=== PATIENT | male | born 1985 | race Caucasian/White ===

== ENCOUNTER 2017-10-13 14:47 | Emergency (ER) | payer MEDICAID ==
[2017-10-13 14:53] VITALS: RESP 18; TEMP 98.4
--- NOTE | 2017-10-13 15:27 | EDPHY ---
H & P Stated Complaint: sinus congestion/cough Time Seen by Provider: 10/13/17 15:05 HPI/ROS: CHIEF COMPLAINT: Sinus congestion HISTORY OF PRESENT ILLNESS: 31-year-old immunocompetent male complaining of 3 days of sinus congestion. No fever no chills. No nuchal rigidity. No cough. No nausea or vomiting. No flu-like symptoms. No influenza vaccination. REVIEW OF SYSTEMS: A ten point review of systems was performed and is negative with the exception of the items mentioned in the HPI PAST MEDICAL & SURGICAL HISTORY: No pertinent medical or surgical history SOCIAL HISTORY: Positive for marijuana smoking PHYSICAL EXAM (Prior to examination, patient consented to physical exam, hands were washed and my usual and customary physical exam procedures followed) 1) GENERAL: Well-developed, well-nourished, alert and oriented. Appears to be in no acute distress. 2) HEAD: Normocephalic, atraumatic 3) HEENT: Pupils equal, round, reactive to light bilaterally. Sclera anicteric. Nasopharynx, oropharynx, clear, no lesions. No tonsillar enlargement or exudate. Ears bilaterally with normal tympanic membranes. 4) NECK: Full range of motion, no meningeal signs. 5) LUNGS: Clear auscultation bilaterally, no wheezes, no rhonchi, no retractions. 6) HEART: Regular rate and rhythm, no murmur, no heave, no gallop. 7) ABDOMEN: No guarding, no rebound, no focal tenderness, negative McBurney's, negative Brennan's, negative Rovsing's, negative peritoneal sign, 8) MUSCULOSKELETAL: Moving all extremities, no focal areas of tenderness, no obvious trauma. No peripheral edema or discoloration. 9) BACK: No CVA tenderness, no midline vertebral tenderness, no fluctuance, no step-off, no obvious trauma, no visual or palpable abnormality. 10) SKIN: No rash, no petechiae. 11) Psychiatric: Patient is oriented X 3, there is no agitation. DIFFERENTIAL DIAGNOSIS: In no particular order including but not limited to acute sinusitis, acute pharyngitis, strep pharyngitis, influenza, pneumonia - Personal History Current Tetanus/Diphtheria Vaccine: Unsure Tetanus Vaccine Date: 2005 - Medical/Surgical History Hx Asthma: No Hx Chronic Respiratory Disease: No Hx Diabetes: No Hx Cardiac Disease: No Hx Renal Disease: No Hx Cirrhosis: No Hx Alcoholism: No Hx HIV/AIDS: No Hx Splenectomy or Spleen Trauma: No Other PMH: cellulitis, ear tubes - Social History Smoking Status: Never smoked Constitutional: Initial Vital Signs Temperature (C) 36.9 C 10/13/17 14:50 Heart Rate 69 10/13/17 14:50 Respiratory Rate 18 10/13/17 14:50 Blood Pressure 141/108 H 10/13/17 14:50 O2 Sat (%) 96 10/13/17 14:50 O2 Delivery Mode Room Air Allergies/Adverse Reactions: No Known Allergies Allergy (Verified 10/13/17 14:50) Home Medications: Medication Instructions Recorded Afrin Nasal [place] 10/13/17 Claritin 10/13/17 Ipratropium 0.06% Nasal [Atrovent 2 sprays EACHNARE QID #1 mdi 10/13/17 0.06% Nasal (RX)] Medical Decision Making ED Course/Re-evaluation: Patient's symptoms are more than likely secondary to viral etiology. For these reasons, I do not feel antibiotics are currently indicated. In addition, I do not identify indication for chest x-ray as the patient's lungs are clear bilaterally, has a normal pulse ox, speaking full sentences, no signs of respiratory distress. The patient understands that this diagnosis is provisional and can never be 100% accurate. Usual and customary warnings were given concerning the clinical impression and all the patient's questions were answered. The patient was instructed to return to the emergency department should her symptoms worsen or return, or develop any new symptoms, otherwise to followup as directed in discharge instructions. Care of patient under supervision of secondary supervising physician Dr Rebolledo. Departure - Departure Disposition: Home, Routine, Self-Care Clinical Impression: Sinusitis, acute Qualifiers: Sinusitis location: maxillary Recurrence: non-recurrent Qualified Code(s): J01.00 - Acute maxillary sinusitis, unspecified Condition: Good Instructions: Sinusitis (ED), Rhinosinusitis (ED) Additional Instructions: Return to the emergency department immediately for change in breathing habits, change in voice, change in swallowing habits, change in mental status, or any other symptoms that concern you. Referrals: [facility],. [Clinic] - 1-2 days without fail Prescriptions: Ipratropium 0.06% Nasal [Atrovent 0.06% Nasal (RX)] 2 sprays EACHNARE QID #1 mdi
[2017-10-13 15:33] VITALS: BP 155/100; PULSE 74; O2SAT 95
== END 2017-10-13 15:33 | disposition home or self-care (01) ==
DX: J01.00 Acute maxillary sinusitis, unspecified (principal)

== ENCOUNTER 2018-01-10 15:40 | Emergency (ER) | payer MEDICAID ==
[2018-01-10] MEDS ORDERED: NS 1,000 ML IV ONE (16:36)
[2018-01-10] MEDS ORDERED: DEXAMETHASONE 10 MG/ML VIAL IVP ONE (16:36)
--- NOTE | 2018-01-10 16:40 | EDPHY ---
H & P Smoking Status: Never smoked Time Seen by Provider: 01/10/18 16:20 HPI/ROS: CHIEF COMPLAINT: Sore throat, fatigue HISTORY OF PRESENT ILLNESS: 32-year-old male presents to the emergency department by private vehicle complaining of sore throat and fatigue over last 3 days. The patient states that he has eaten and drank very little over last 2- 3 days because of the pain in his throat. No fevers or chills. He feels like he has swollen glands. He feels extreme fatigue. No known ill contacts. He does have roommates however that are not ill. He denies pain in his chest or difficulty breathing. Denies abdominal pain or vomiting. Patient denies dysphagia or trismus. REVIEW OF SYSTEMS: Constitutional: No fever, no chills. Eyes: No double or blurry vision. ENT: sore throat. Respiratory: No cough, no shortness of breath. Cardiac: No chest pain. Gastrointestinal: Nausea. No abdominal pain, vomiting or diarrhea. Genitourinary: No dysuria. Musculoskeletal: No neck or back pain. Skin: No rashes. Neurological: No headache. (Blanca Duke) Past Medical/Surgical History: Cellulitis, ear tubes (Blanca Duke) Social History: Single, works in a restaurant (Blanca Duke) Physical Exam: General Appearance: Alert, no distress. Temperature 37.4 degrees. Eyes: Pupils equal and round. Extraocular motions are all intact. ENT: Mouth: Mucous membranes moist. Large 2+ tonsils with exudate noted. No muffled voice or trismus. Respiratory: No wheezing, rhonchi, or rales, lungs are clear to auscultation. Cardiovascular: Regular rate and rhythm. Gastrointestinal: Abdomen is soft and nontender, no masses, no rebound or guarding, bowel sounds normal. Neurological: Alert and oriented x 3, cranial nerves II through XII grossly intact Skin: Warm and dry, no rashes. Musculoskeletal: Nontender to palpate along the cervical, thoracic or lumbar spine. Neck is supple. Anterior cervical lymphadenopathy palpated. Extremities: Full range of motion and no peripheral edema. Psychiatric: Patient is oriented X 3, there is no agitation. (Blanca Duke) Constitutional: Initial Vital Signs Temperature (C) 37.4 C 01/10/18 15:56 Heart Rate 78 01/10/18 15:56 Respiratory Rate 18 01/10/18 15:56 Blood Pressure 141/81 H 01/10/18 15:56 O2 Sat (%) 96 01/10/18 15:56 O2 Delivery Mode Room Air Allergies/Adverse Reactions: No Known Allergies Allergy (Verified 01/10/18 16:00) Home Medications: Medication Instructions Recorded Afrin Nasal [place] 10/13/17 Claritin 10/13/17 Ipratropium 0.06% Nasal [Atrovent 2 sprays EACHNARE QID #1 mdi 10/13/17 0.06% Nasal (RX)] Medical Decision Making ED Course/Re-evaluation: 32-year-old male presents emergency department with fatigue and sore throat. He is concerned about possible mononucleosis. He has also not been able to eat or drink much because of the pain. IV was established and laboratory studies were drawn. Patient was given IV normal saline as well as IV Decadron. (Blanca Duke) I took over care of this patient at 5:15 p.m.. We were waiting testing for mononucleosis and streptococcal pharyngitis. Patient has been given IV fluids, IV Decadron and IV Toradol. 5:35 p.m., patient re-evaluated. Resting comfortably at this time. Rapid strep positive. Mononucleosis negative. Medication allergies reviewed. He is feeling much better at this time. No voice changes. No stridor. He will be given 1.2 million units of intramuscular penicillin G long-acting. He feels comfortable going home at this time and I feel he is safe for discharge. Follow -up and return to emergency department precautions reviewed with him. All of his questions were answered. He was discharged from the emergency department in good condition. (Pastora Persaud) Differential Diagnosis: Including but not limited to strep pharyngitis, mononucleosis, peritonsillar abscess, retropharyngeal abscess, sepsis (Blanca Duke) - Data Points Laboratory Results: Laboratory Results 01/10/18 16:32 01/10/18 16:45 01/10/18 01/10/18 01/10/18 16:45 16:32 16:32 WBC RBC Hgb Hct MCV MCH MCHC RDW Plt Count MPV Neut % (Auto) Lymph % (Auto) [place] % (Auto) Eos % (Auto) Baso % (Auto) Nucleat RBC Rel Count Absolute Neuts (auto) Absolute Lymphs (auto) Absolute Monos (auto) Absolute Eos (auto) Absolute Basos (auto) Absolute Nucleated RBC Immature Gran % Immature Gran # Sodium 138 mEq/L mEq/L (135-145) Potassium 3.9 mEq/L mEq/L (3.3-5.0) Chloride 106 mEq/L mEq/L (97-110) Carbon Dioxide 16 mEq/l L mEq/l (22-31) Anion Gap 16 mEq/L mEq/L (8-16) BUN 9 mg/dL mg/dL (7-23) Creatinine 1.0 mg/dL mg/dL (0.7-1.3) Estimated GFR > 60 Glucose 100 mg/dL mg/dL (70-100) Calcium 9.4 mg/dL mg/dL (8.5-10.4) Monoscreen NEGATIVE (NEGATIVE) Group A Strep Screen POSITIVE H (NEGATIVE) 01/10/18 16:32 WBC 17.48 10^3/uL H 10^3/uL (3.80-9.50) RBC 5.25 10^6/uL 10^6/uL (4.40-6.38) Hgb 15.3 g/dL g/dL (13.7-17.5) Hct 43.5 % % (40.0-51.0) MCV 82.9 fL fL (81.5-99.8) MCH 29.1 pg pg (27.9-34.1) MCHC 35.2 g/dL g/dL (32.4-36.7) RDW 13.2 % % (11.5-15.2) Plt Count 249 10^3/uL 10^3/uL (150-400) MPV 9.8 fL fL (8.7-11.7) Neut % (Auto) 82.5 % H % (39.3-74.2) Lymph % (Auto) 9.6 % L % (15.0-45.0) [place] % (Auto) 6.9 % % (4.5-13.0) Eos % (Auto) 0.1 % L % (0.6-7.6) Baso % (Auto) 0.3 % % (0.3-1.7) Nucleat RBC Rel Count 0.0 % % (0.0-0.2) Absolute Neuts (auto) 14.44 10^3/uL H 10^3/uL (1.70-6.50) Absolute Lymphs (auto) 1.67 10^3/uL 10^3/uL (1.00-3.00) Absolute Monos (auto) 1.21 10^3/uL H 10^3/uL (0.30-0.80) Absolute Eos (auto) 0.01 10^3/uL L 10^3/uL (0.03-0.40) Absolute Basos (auto) 0.05 10^3/uL 10^3/uL (0.02-0.10) Absolute Nucleated RBC 0.00 10^3/uL 10^3/uL (0-0.01) Immature Gran % 0.6 % % (0.0-1.1) Immature Gran # 0.10 10^3/uL 10^3/uL (0.00-0.10) Sodium Potassium Chloride Carbon Dioxide Anion Gap BUN Creatinine Estimated GFR Glucose Calcium Monoscreen Group A Strep Screen Medications Given: Discontinued Medications Dexamethasone (Decadron Injection) 10 mg IVP EDNOW ONE Stop: 01/10/18 16:37 Last Admin: 01/10/18 16:53 Dose: 10 mg Sodium Chloride (Ns) 1,000 mls @ 0 mls/hr IV ONCE ONE PRN Reason: Wide Open Stop: 01/10/18 16:37 Last Admin: 01/10/18 16:53 Dose: 1,000 mls Ketorolac Tromethamine (Toradol) 30 mg IVP EDNOW ONE Stop: 01/10/18 17:16 Last Admin: 01/10/18 17:24 Dose: 30 mg Departure - Departure Disposition: Home, Routine, Self-Care Clinical Impression: Sore throat, Streptococcal pharyngitis Fatigue Qualifiers: Fatigue type: unspecified Qualified Code(s): R53.83 - Other fatigue Condition: Good Instructions: Fatigue (ED), Strep Throat (ED) Additional Instructions: Adult Pain & Fever Control: We recommend Acetaminophen (Tylenol) and Ibuprofen (Motrin,Advil) for pain and fever control. When fever is high or pain severe, both drugs can be used at the same time, but at different intervals. Please note the time differences. Your dose is: Acetaminophen 1000mg every 4 to 6 hours Ibuprofen 600mg every 6-8 hours with food, you can start taking ibuprofen tomorrow morning. Note: do not take Acetaminophen with Hydrocodone (Vicodin, Lortab) or Oycodone (Percocet). These medications also contain Acetaminophen. No more than 3000mg of Acetaminophen should be taken in 24 hours (for an adult). Read and follow provided instructions. Follow-up with your primary care physician in on Saturday or Saturday of this coming week for re-evaluation. Take medication as prescribed. Return to the emergency department for worsening symptoms, worsening sore throat , difficulty swallowing, voice changes, stridor, difficulty breathing or other serious concerns. Referrals: Shyam Roman DO [Doctor of Osteopathy] - As per Instructions
[2018-01-10 17:08] LABS: PLATELET COUNT 249 10^3/uL (150-400)
[2018-01-10] MEDS ORDERED: KETOROLAC 30 MG/1 ML SDV IVP ONE (17:15)
[2018-01-10] MEDS ORDERED: BICILLIN L-A 1200000 UNIT/2 ML SYRINGE IM ONE (17:32)
[2018-01-10 18:09] VITALS: BP 127/73
== END 2018-01-10 18:14 | disposition home or self-care (01) ==
DX: J02.0 Streptococcal pharyngitis (principal); R53.83 Other fatigue
CPT/HCPCS: 96374; J0561; J1100; J1885

== ENCOUNTER 2018-05-02 21:59 | Emergency (ER) | payer OTHER, MEDICAID ==
[2018-05-02 22:05] VITALS: BP 131/82
--- NOTE | 2018-05-02 22:40 | EDPHY ---
H & P Stated Complaint: skin puncture wound in hand Time Seen by Provider: 05/02/18 22:32 HPI/ROS: Chief Complaint: Puncture wound right hand HPI: 32-year-old male puncture to his right hand when he reached for a stainless steel order spike at work. He says the tip when in the palm of his hand any sought tenting on the dorsum of his hand. His last tetanus was in 2005. He denies any current pain. He did wash the area copiously after the accident. Denies any pain now. Does not hurt to move his hand grasp. No other prior injuries. ROS: 10 systems were reviewed and were negative except those elements noted in the HPI. PMH: Denies Social History: No smoking Family History: non-contributory Physical Exam: General: Awake, alert, no acute distress Right hand: Patient has a small puncture wound in the webspace between his 2nd and 3rd does his right. There is a mild area of erythema on the dorsum of the webspace of the side no tenderness along the flexor or tendon sheath. There is no bony tenderness or deformity. There is no erythema. He has full flexion and extension of all his digits without any discomfort. Skin: No rash - Personal History Current Tetanus/Diphtheria Vaccine: No Current Tetanus Diphtheria and Acellular Pertussis (TDAP): No Tetanus Vaccine Date: 2005 - Medical/Surgical History Hx Asthma: No Hx Chronic Respiratory Disease: No Hx Diabetes: No Hx Cardiac Disease: No Hx Renal Disease: No Hx Cirrhosis: No Hx Alcoholism: No Hx HIV/AIDS: No Hx Splenectomy or Spleen Trauma: No Other PMH: cellulitis, ear tubes - Social History Smoking Status: Never smoked Constitutional: Initial Vital Signs Temperature (C) 36.8 C 05/02/18 22:04 Heart Rate 68 05/02/18 22:04 Respiratory Rate 16 05/02/18 22:04 Blood Pressure 131/82 H 05/02/18 22:04 O2 Sat (%) 97 05/02/18 22:04 O2 Delivery Mode Room Air Allergies/Adverse Reactions: No Known Allergies Allergy (Verified 01/10/18 16:00) Home Medications: Medication Instructions Recorded Afrin Nasal [place] 10/13/17 Claritin 10/13/17 Ipratropium 0.06% Nasal [Atrovent 2 sprays EACHNARE QID #1 mdi 10/13/17 0.06% Nasal (RX)] Medical Decision Making ED Course/Re-evaluation: Patient sustained a clean puncture wound to his right hand. There is no evidence of acute tendon or bony injury at this time. Will update his tetanus. He has been given instructions return for any signs of infection. He will follow up with workman's Comp. Departure - Departure Disposition: Home, Routine, Self-Care Clinical Impression: Puncture wound Condition: Good Instructions: Puncture Wound (ED), Diphtheria/Acellular Pertussis/Tetanus Booster Vaccine (By injection) Additional Instructions: Return to the emergency department for increasing redness, increasing pain, fevers, discharge from the wound, streaking up your hand, or any other concerns. Follow up with workman's Comp in 3-4 days for wound check. Referrals: Work Comp Referral [facility] [Outside] - As per Instructions
[2018-05-02] MEDS ORDERED: TDAP ADULT 0.5 ML INJ (BOOSTRIX) IM ONE (22:41)
== END 2018-05-02 23:12 | disposition home or self-care (01) ==
DX: S61.431A Puncture wound without foreign body of right hand, initial encounter (principal); W45.8XXA Other foreign body or object entering through skin, initial encounter; Y99.0 Civilian activity done for income or pay; Z23 Encounter for immunization